=== PATIENT | female | born 1995 | race Hispanic/Latino ===

== ENCOUNTER 2024-05-31 09:04 | Day surgery (SDC) | payer OTHER ==
[2024-05-31 10:18] VITALS: BMI 42.0
[2024-05-31 11:33] LABS: #Basophils 0.05 10x3/uL (0.0-0.2); #Eosinophils 0.24 10x3/uL (0.0-0.5); #Monocytes 0.58 10x3/uL (0.0-1.1); #Neutrophils 8.25 10x3/uL (1.5-8.4); %Basophils 0.4 % (0.0-2.0); %Eosinophils 2.2 % (0.0-6.0); %Lymphocytes 16.3 % (18.0-47.0); %Monocytes 5.2 % (0.0-10.0); %Neutrophils 74.1 % (40.0-75.0); Hematocrit 36.2 % (34.9-44.5); Hemoglobin 11.9 g/dL (12.0-15.5); Mean Corpuscular HGB CONC 32.9 g/dL (32.0-36.0); Mean Corpuscular Hemoglobin 29.6 pg (27.0-33.0); Mean Platelet Volume 10.7 fL (7.4-10.4); Platelet Count 212 10x3/uL (150-450); RBC Distribution Width 13.3 % (11.5-14.5); Red Blood Cell (RBC) Count 4.02 10x6/uL (3.90-5.03); White Blood Cell (WBC) Count 11.1 10x3/uL (3.5-10.5)
[2024-05-31 11:33] LABS: Creatinine, Urine 28.09 mg/dL (47-110); Protein, Urine Random Quant Less than 10 mg/dL (1-14)
[2024-05-31 11:50] LABS: ALT (SGPT) 13 U/L (8-55); AST (SGOT) 13 U/L (5-34); Albumin 2.8 g/dL (3.5-5.0); Alkaline Phosphatase 108 U/L (40-110); Anion Gap 13 mmol/L (10-20); BUN (Urea Nitrogen) 6 mg/dL (7.0-18.7); Bilirubin, Total 0.2 mg/dL (0.2-1.2); Calc. Creatinine Clearance 303 mL/min (70-130); Carbon Dioxide 18 mmol/L (22-29); Chloride 109 mmol/L (98-107); Estimated GFR 127; Globulin 3.8 g/dL (2.4-3.5); Glucose 86 mg/dL (70-105); Potassium 3.9 mmol/L (3.5-5.1); Protein, Total 6.6 g/dL (6.0-8.3); Sodium 136 mmol/L (136-145)
== END 2024-05-31 16:12 | disposition home or self-care (01) ==
LOC: CSHLD/OP 09:04
PROVIDERS: ATTEND Family Medicine
DX: O13.3 Gestational [pregnancy-induced] hypertension without significant proteinuria, third trimester (principal); O24.419 Gestational diabetes mellitus in pregnancy, unspecified control; Z79.82 Long term (current) use of aspirin; Z79.899 Other long term (current) drug therapy; Z3A.33 33 weeks gestation of pregnancy
CPT/HCPCS: 76817; 76819; 80053; 82570; 84156; 85025

== ENCOUNTER 2024-06-26 18:00 | Inpatient (IN) | payer MEDICAID, OTHER ==
[~2024-06-26 18:00] MED LIST: Bupivacaine 0.25% HCL 30 ML VIAL ONE; Bupivacaine PF 0.5% 30 ML VIAL ONE
[2024-06-26 20:58] VITALS: BMI 42.8
[2024-06-26] MEDS ORDERED: hydrALAZINE 20 MG/ML VIAL SLOW IVP PRN (21:13)
[2024-06-26] MEDS ORDERED: Promethazine HCl 25 MG/ML VIAL IM PRN (21:13)
[2024-06-26] MEDS ORDERED: Acetaminophen 500 MG TAB PO PRN (21:13)
[2024-06-26] MEDS ORDERED: Misoprostol 200 MCG TAB PR PRN (21:13)
[2024-06-26] MEDS ORDERED: Carboprost 250 MCG/ML AMP IM PRN (21:13)
[2024-06-26] MEDS ORDERED: Diphenoxylate HCl/Atropine Tablet PO PRN (21:13)
[2024-06-26] MEDS ORDERED: Ondansetron PF 4 MG/2 ML Vial IVP PRN (21:13)
[2024-06-26] MEDS ORDERED: Oxytocin 30 units/NS 500 ML 500 ML IV SCH (21:15)
[2024-06-26 22:12] LABS: Hematocrit 32.6 % (34.9-44.5); Mean Corpuscular HGB CONC 33.7 g/dL (32.0-36.0); Mean Corpuscular Hemoglobin 29.4 pg (27.0-33.0); Mean Corpuscular Volume 87.2 fL (81.6-98.3); Platelet Count 213 10x3/uL (150-450); RBC Distribution Width 13.4 % (11.5-14.5); Red Blood Cell (RBC) Count 3.74 10x6/uL (3.90-5.03); White Blood Cell (WBC) Count 8.2 10x3/uL (3.5-10.5)
[2024-06-26 22:39] LABS: Syphilis Antibody Nonreactive (Nonreactive); Syphilis Antibody Index 0.07 S/CO (<1.00 Non-Reactive)
[2024-06-26 22:40] LABS: HBsAg Index 0.15 S/CO (0-0.99); Hep B Surf Ag - L&D Non-Reactive S/CO (NonReactive)
[2024-06-27] MEDS: fentaNYL/Ropivacaine Epidural 100 ML ONE (00:17)
[2024-06-27] MEDS ORDERED: diphenhydrAMINE 50 MG/ML VIAL IVP PRN (01:01)
[2024-06-27] MEDS ORDERED: Acetaminophen 325 MG TAB PO PRN (01:01)
[2024-06-27] MEDS ORDERED: Promethazine HCl 25 MG/ML VIAL IM PRN (01:01)
[2024-06-27] MEDS ORDERED: Ondansetron PF 4 MG/2 ML Vial IVP PRN (01:01)
[2024-06-27] MEDS ORDERED: Moisturizing Cream (Eucerin) 113 GM JAR TOP PRN (01:01)
[2024-06-27] MEDS ORDERED: Naloxone HCl 0.4 mg/ml Vial IVP PRN ×2 (01:01)
[2024-06-27] MEDS ORDERED: Lactated Ringer's 500 ML IV PRN (01:01)
[2024-06-27] MEDS ORDERED: ePHEDrine Sulfate 50 MG/10 ML VIAL SLOW IVP PRN (01:01)
[2024-06-27] MEDS ORDERED: Communication Order-Pharmacy FS SCH (01:15)
[2024-06-27] MEDS ORDERED: fentaNYL 2 mcg/Ropivacaine 0.2% Epidural 100 ML CADD EPIDURAL SCH (01:15)
[2024-06-27 09:26] LABS: #Basophils 0.02 10x3/uL (0.0-0.2); #Eosinophils 0.05 10x3/uL (0.0-0.5); #Monocytes 0.49 10x3/uL (0.0-1.1); #Neutrophils 7.39 10x3/uL (1.5-8.4); %Basophils 0.2 % (0.0-2.0); %Eosinophils 0.5 % (0.0-6.0); %Lymphocytes 15.7 % (18.0-47.0); %Monocytes 5.1 % (0.0-10.0); %Neutrophils 77.5 % (40.0-75.0); Hematocrit 31.9 % (34.9-44.5); Hemoglobin 10.6 g/dL (12.0-15.5); Mean Corpuscular HGB CONC 33.2 g/dL (32.0-36.0); Mean Corpuscular Hemoglobin 29.4 pg (27.0-33.0); Mean Corpuscular Volume 88.6 fL (81.6-98.3); Mean Platelet Volume 11.4 fL (7.4-10.4); Platelet Count 187 10x3/uL (150-450); RBC Distribution Width 13.6 % (11.5-14.5); White Blood Cell (WBC) Count 9.6 10x3/uL (3.5-10.5)
[2024-06-27 09:46] LABS: ALT (SGPT) 11 U/L (8-55); AST (SGOT) 14 U/L (5-34); Albumin 2.5 g/dL (3.5-5.0); Alkaline Phosphatase 131 U/L (40-110); Anion Gap 12 mmol/L (10-20); BUN (Urea Nitrogen) 7 mg/dL (7.0-18.7); Bilirubin, Total 0.3 mg/dL (0.2-1.2); Calc. Creatinine Clearance 302 mL/min (70-130); Calcium 8.7 mg/dL (7.8-10.44); Carbon Dioxide 21 mmol/L (22-29); Chloride 107 mmol/L (98-107); Estimated GFR 126; Globulin 2.9 g/dL (2.4-3.5); Glucose 91 mg/dL (70-105); Potassium 4.3 mmol/L (3.5-5.1); Protein, Total 5.4 g/dL (6.0-8.3); Sodium 136 mmol/L (136-145)
[2024-06-27] MEDS: Tranexamic Acid 1,000 MG/10 ML VIAL IVP PRN (09:50)
[2024-06-27] MEDS ORDERED: Benzocaine-Menthol 82.5 ML CAN TOP PRN (10:10)
[2024-06-27] MEDS ORDERED: Methylergonovine 0.2 MG/ML VIAL IM PRN (10:10)
[2024-06-27] MEDS ORDERED: Milk Of Magnesia 30 ML UDCUP PO PRN (10:10)
[2024-06-27] MEDS ORDERED: Misoprostol 200 MCG TAB VAG PRN (10:10)
[2024-06-27] MEDS ORDERED: hydrALAZINE 20 MG/ML VIAL SLOW IVP PRN (10:10)
[2024-06-27] MEDS ORDERED: Lanolin Ointment 7 GM TUBE TOP PRN (10:10)
[2024-06-27] MEDS ORDERED: Bisacodyl 10 MG SUPP PR PRN (10:10)
[2024-06-27] MEDS ORDERED: Oxytocin 30 units/NS 500 ML 500 ML IV SCH (10:15)
[2024-06-27] MEDS: Ibuprofen 800 MG TAB PO SCH (15:10)
[2024-06-27] MEDS: Ferrous Sulfate 325 MG TAB PO SCH (19:20)
[2024-06-27] MEDS: Docusate 100 MG CAP PO SCH (21:29)
[2024-06-28] MEDS: Methylergonovine 0.2 MG/ML VIAL ONE (07:15)
[2024-06-28] MEDS: Boostrix 0.5 ML (Tdap) VIAL (>/=7 yrs of age) IM ONE (07:16)
[2024-06-28 07:38] VITALS: TEMP 97.7
[2024-06-28] MEDS: Prenatal Vitamin 1 TAB PO SCH (08:59)
[2024-06-28 11:14] VITALS: BP 113/90
== END 2024-06-28 13:50 | disposition home or self-care (01) | DRG 807 ==
LOC: CSHLD 20:15 → CSHPP 06-27 12:50
PROVIDERS: ADMIT Family Medicine; ATTEND Family Medicine
PROC: 10907ZC Drainage of Amniotic Fluid, Therapeutic from Products of Conception, Via Natural or Artificial Opening (ICD-10-PCS; principal; 2024-06-27)
PROC: 10E0XZZ Delivery of Products of Conception, External Approach (ICD-10-PCS; 2024-06-27)
PROC: 10H07YZ Insertion of Other Device into Products of Conception, Via Natural or Artificial Opening (ICD-10-PCS; 2024-06-27)
PROC: 0HQ9XZZ Repair Perineum Skin, External Approach (ICD-10-PCS; 2024-06-27)
PROC: 0UQMXZZ Repair Vulva, External Approach (ICD-10-PCS; 2024-06-27)
DX: O13.4 Gestational [pregnancy-induced] hypertension without significant proteinuria, complicating childbirth (principal); Z37.0 Single live birth; O40.3XX0 Polyhydramnios, third trimester, not applicable or unspecified; Z3A.37 37 weeks gestation of pregnancy; O99.214 Obesity complicating childbirth; E66.813 Obesity, class 3; O70.0 First degree perineal laceration during delivery; O71.82 Other specified trauma to perineum and vulva
CPT/HCPCS: 36415; 36416; 51702; 80053; 85025; 85027; 86780; 86850; 86900; 86901; 87340; J0665